=== PATIENT | female | born 1985 | race American Indian/Alaskan Native ===

== ENCOUNTER 2016-12-19 09:26 | Emergency (ER) | payer MEDICAID, OTHER ==
[2016-12-19 09:27] VITALS: BMI 33.5
[2016-12-19 09:39] VITALS: RESP 18; TEMP 98.7
--- NOTE | 2016-12-19 10:49 | RAD ---
PROCEDURE: Right Foot Radiographs. HISTORY: foot pain COMPARISON: None. FINDINGS: BONES: Normal. No fracture. JOINTS: Normal. SOFT TISSUES: Normal. OTHER FINDINGS: None. IMPRESSION: Normal right foot radiographs.
--- NOTE | 2016-12-19 11:04 | ED PDOC ---
Arrival/HPI - General Chief Complaint: Lower Extremity Problem/Injury Time Seen by Provider: 12/19/16 09:32 Historian: Patient - History of Present Illness Narrative History of Present Illness (Text): 12/19/16 11:01 31yo female who present with complaint of right lateral foot pain x one week. States pain radiates from her hell to her lateral foot. Pain is usually with weight bearing. Denies trauma, any other complaint. Past Medical History - Provider Review Nursing Documentation Reviewed: Yes - Infectious Disease Hx of Infectious Diseases: None - Cardiac Hx Cardiac Disorders: No - Pulmonary Hx Asthma: Yes - Neurological Hx Neurological Disorder: No - HEENT Hx HEENT Disorder: No - Renal Hx Renal Disorder: No - Endocrine/Metabolic Hx Endocrine Disorders: No - Hematological/Oncological Hx Blood Disorders: No - Integumentary Hx Dermatological Disorder: No - Musculoskeletal/Rheumatological Hx Musculoskeletal Disorders: No - Gastrointestinal Hx Gastrointestinal Disorders: No - Genitourinary/Gynecological Hx Genitourinary Disorders: No - Psychiatric Hx Psychophysiologic Disorder: No Hx Substance Use: No - Anesthesia Hx Anesthesia: No Family/Social History - Physician Review Nursing Documentation Reviewed: Yes Family/Social History: Unknown Family HX Smoking Status: Light Smoker < 10 Cigarettes Daily Hx Alcohol Use: Yes Frequency of alcohol use: Socially Hx Substance Use: No Substance used: cannibis Allergies/Home Meds Allergies/Adverse Reactions: Allergies ibuprofen Allergy (Verified 12/19/16 09:40) ANAPHYLAXIS Caused kidney to fail Home Medications: Home Meds Medication Instructions Recorded Confirmed Albuterol Sulfate [Proair Hfa] 2 puff INH PRN PRN 07/16/16 12/19/16 Review of Systems - Physician Review All systems were reviewed & negative as marked: Yes - Review of Systems Constitutional: Normal Eyes: Normal ENT: Normal Respiratory: Normal Cardiovascular: Normal Gastrointestinal: Normal Genitourinary Female: Normal Musculoskeletal: Arthralgias (Right feet pain) Skin: Normal Neurological: Normal Endocrine: Normal Hemo/Lymphatic: Normal Psychiatric: Normal Physical Exam Vital Signs Reviewed: Yes Vital Signs Temp Pulse Resp BP Pulse Ox 12/19/16 11:25 70 18 110/76 99 12/19/16 09:35 98.7 F 71 18 108/74 98 Temperature: Afebrile Blood Pressure: Normal Pulse: Regular Respiratory Rate: Normal Appearance: Positive for: Well-Appearing, Non-Toxic, Comfortable Pain Distress: None Mental Status: Positive for: Alert and Oriented X 3 - Systems Exam Head: Present: Atraumatic, Normocephalic Pupils: Present: PERRL Extroacular Muscles: Present: EOMI Conjunctiva: Present: Normal Mouth: Present: Moist Mucous Membranes Neck: Present: Normal Range of Motion Respiratory/Chest: Present: Clear to Auscultation, Good Air Exchange. No: Respiratory Distress, Accessory Muscle Use Cardiovascular: Present: Regular Rate and Rhythm, Normal S1, S2. No: Murmurs Abdomen: Present: Normal Bowel Sounds, Peritoneal Signs. No: Tenderness, Distention Genitourinary/Pelvic Exam: Present: Vaginal Bleeding (Small blood pooling noted in vault). No: Cervical Motion Tendernes Back: Present: Normal Inspection Upper Extremity: Present: Normal Inspection. No: Cyanosis, Edema Lower Extremity: Present: NORMAL PULSES, Normal ROM, Tenderness (Lateral right foot), Neurovascularly Intact, Capillary Refill < 2 s. No: Edema, Cyanosis, Swelling, Erythema, Deformity, Temperature Abnormalties Neurological: Present: GCS=15, CN II-XII Intact, Speech Normal Skin: Present: Warm, Dry, Normal Color. No: Rashes Psychiatric: Present: Alert, Oriented x 3, Normal Insight, Normal Concentration Medical Decision Making ED Course and Treatment: 12/19/16 13:45 Right foot xray - No acute finding Result was DW the pt pt. She was ambulatory in ED. DC home with Tramadol. Referred to a Pediatrist. TRT ED for any new or worsening symptoms. - RAD Interpretation Radiology Orders: 12/19/16 09:46 FOOT RIGHT 3 VIEWS ROUTINE [RAD] Stat - Medication Orders Current Medication Orders: Discontinued Medications Prednisone (Prednisone Tab) 40 mg PO STAT STA Stop: 12/19/16 11:22 Last Admin: 12/19/16 11:28 Dose: 40 MG Tramadol HCl (Ultram) 50 mg PO STAT STA Stop: 12/19/16 09:47 Last Admin: 12/19/16 09:53 Dose: 50 MG Disposition/Present on Arrival - Present on Arrival Any Indicators Present on Arrival: No History of DVT/PE: No History of Uncontrolled Diabetes: No Urinary Catheter: No History of Decub. Ulcer: No History Surgical Site Infection Following: None - Disposition Have Diagnosis and Disposition been Completed?: Yes Diagnosis: Foot pain Disposition: HOME/ ROUTINE Disposition Time: 11:10 Patient Plan: Discharge Condition: STABLE Discharge Instructions (ExitCare): Arthralgia (ED) Additional Instructions: Take medication as directed Follow up with your Doctor/Fuel Buyer Return to ED for any new or worsening symptoms Prescriptions: traMADol [Ultram] 50 mg PO TID #10 tab Referrals: Julius Colunga MD [Primary Care Provider] - Follow up with primary Daylin Miles DPM [Staff Provider] - Follow up with primary
[2016-12-19 11:35] VITALS: BP 110/76; PULSE 70; O2SAT 99
== END 2016-12-19 11:37 | disposition home or self-care (01) ==
LOC: ED 09:26
DX: M79.671 Pain in right foot (principal)

== ENCOUNTER 2017-02-16 19:41 | Emergency (ER) | payer OTHER ==
[2017-02-16 19:48] VITALS: TEMP 99.7; BMI 31.5
[2017-02-16] MEDS ORDERED: Levalbuterol 1.25 MG/3 ML Inhal Soln UD IH STA (20:19)
[2017-02-16] MEDS ORDERED: guaiFENesin 200 mg/10 ml Syrup UD PO STA (20:19)
--- NOTE | 2017-02-16 20:27 | ED PDOC ---
Arrival/HPI - General Chief Complaint: Cough, Cold, Congestion Time Seen by Provider: 02/16/17 19:51 Historian: Patient - History of Present Illness Narrative History of Present Illness (Text): 02/16/17 20:20 A 31 year old female, whose past medical history includes asthma, presents to the emergency department for multiple complaints. Patient reports a fever, chills, non-productive cough, congestion, sore throat, body aches and a headache since yesterday. Patient states she has not taken any medication to treat her symptoms. Patient denies any nausea, vomiting, diarrhea, abdominal pain, urinary symptoms, chest pain, shortness of breath, dizziness, ear pain or any other complaints. Time/Duration: Other (Yesterday) Symptom Course: Unchanged Quality: Other Context: Home Past Medical History - Provider Review Nursing Documentation Reviewed: Yes - Infectious Disease Hx of Infectious Diseases: None - Cardiac Hx Cardiac Disorders: No - Pulmonary Hx Asthma: Yes - Neurological Hx Neurological Disorder: No - HEENT Hx HEENT Disorder: No - Renal Hx Renal Disorder: No - Endocrine/Metabolic Hx Endocrine Disorders: No - Hematological/Oncological Hx Blood Disorders: No - Integumentary Hx Dermatological Disorder: No - Musculoskeletal/Rheumatological Hx Musculoskeletal Disorders: No - Gastrointestinal Hx Gastrointestinal Disorders: No - Genitourinary/Gynecological Hx Genitourinary Disorders: No - Psychiatric Hx Psychophysiologic Disorder: No Hx Substance Use: No - Anesthesia Hx Anesthesia: No Family/Social History - Physician Review Nursing Documentation Reviewed: Yes Family/Social History: No Known Family HX Smoking Status: Light Smoker < 10 Cigarettes Daily Hx Alcohol Use: Yes Hx Substance Use: No Substance used: cannibis Allergies/Home Meds Allergies/Adverse Reactions: Allergies ibuprofen Allergy (Verified 02/16/17 19:58) ANAPHYLAXIS Caused kidney to fail Review of Systems - Physician Review All systems were reviewed & negative as marked: Yes - Review of Systems Constitutional: Fevers, Night Sweats ENT: Sore Throat, Sinus Congestion. absent: TMJ Pain Respiratory: Cough. absent: SOB Cardiovascular: absent: Chest Pain Gastrointestinal: absent: Abdominal Pain, Diarrhea, Nausea, Vomiting Genitourinary Female: absent: Dysuria, Frequency, Hematuria, Urine Output Changes Musculoskeletal: Myalgias Neurological: Headache. absent: Dizziness Physical Exam Vital Signs Reviewed: Yes Vital Signs Temp Pulse Resp BP Pulse Ox 02/16/17 20:56 75 18 148/65 99 06/07/17 19:44 99.7 F H 79 16 152/66 H 98 Temperature: Afebrile Blood Pressure: Hypertensive Pulse: Tachycardic Respiratory Rate: Normal Appearance: Positive for: Well-Appearing, Non-Toxic, Comfortable Pain Distress: None Mental Status: Positive for: Alert and Oriented X 3 - Systems Exam Head: Present: Atraumatic, Normocephalic Pupils: Present: PERRL Conjunctiva: Present: Normal Ears: Present: Normal, NORMAL TM, Normal Canal. No: Erythema, Fluid, TM Perf Mouth: Present: Moist Mucous Membranes Pharnyx: Present: Normal. No: ERYTHEMA, EXUDATE, TONSILS ENLARGED Neck: Present: Normal Range of Motion Respiratory/Chest: Present: Clear to Auscultation, Good Air Exchange. No: Respiratory Distress, Accessory Muscle Use Cardiovascular: Present: Regular Rate and Rhythm, Normal S1, S2. No: Murmurs Abdomen: Present: Normal Bowel Sounds. No: Tenderness, Distention, Peritoneal Signs Back: Present: Normal Inspection Upper Extremity: Present: Normal Inspection. No: Cyanosis, Edema Lower Extremity: Present: Normal Inspection. No: Edema Neurological: Present: GCS=15, CN II-XII Intact, Speech Normal Skin: Present: Warm, Dry, Normal Color. No: Rashes Psychiatric: Present: Alert, Oriented x 3, Normal Insight, Normal Concentration Medical Decision Making ED Course and Treatment: 02/16/17 20:20 Impression: A 31 year old female with a fever, chills, cough, congestion, sore throat, body aches and headache. Physical exam unremarkable. Differential Diagnosis included but are not limited to: URI vs. Bronchitis vs. Pharyngitis Plan: -- Chest xray -- Influenza AB stat and Rapid strep -- Urinalysis -- Tylenol, Robitussin and Xopenex -- Reassess and disposition Progress Notes: 02/16/17 21:58 Patient is nontoxic. CXR is unremarkable. Rapid strep and flu are negative. Etiology is viral vs. bronchitis. Will d/c on zithromax and have her use tylenol for fever and body aches and drink plenty of fluids. Will give decadron , given asthma history and she will use her albuterol every 4 hours and instructed to follow up with pmd in 1-2 days. - Lab Interpretations Lab Results: Lab Results 02/16/17 21:00: Influenza Typ A,B (EIA) Negative for flu a/b, Grp A Beta Strep Ag Negative 02/16/17 20:30: Urine Color Yellow, Urine Appearance Clear, Urine pH 7.0, Ur Specific [place] 1.020, Urine Protein Negative, Urine Glucose (UA) Negative, Urine Ketones Negative, Urine Blood Trace-lysed H, Urine Nitrate Negative, Urine Bilirubin Negative, Urine Urobilinogen 0.2, Ur Leukocyte Esterase Negative , Urine RBC 2 - 5, Urine WBC 0 - 2, Ur Epithelial Cells 3 - 4, Urine Bacteria Small - RAD Interpretation Radiology Orders: 02/16/17 20:20 CHEST TWO VIEWS (PA/LAT) [RAD] Stat - Medication Orders Current Medication Orders: Discontinued Medications Acetaminophen (Tylenol 325mg Tab) 975 mg PO STAT STA Stop: 02/16/17 20:20 Last Admin: 02/16/17 21:04 Dose: 975 mg Guaifenesin (Robitussin) 600 mg PO ONCE STA Stop: 02/16/17 20:20 Last Admin: 02/16/17 21:04 Dose: 600 mg Levalbuterol HCl (Xopenex) 1.25 mg IH STAT STA Stop: 02/16/17 20:20 Last Admin: 02/16/17 21:04 Dose: 1.25 mg - Scribe Statement The provider has reviewed the documentation as recorded by the Ning Saucedo Provider Scribe Attestation: All medical record entries made by the Scribe were at my direction and personally dictated by me. I have reviewed the chart and agree that the record accurately reflects my personal performance of the history, physical exam, medical decision making, and the department course for this patient. I have also personally directed, reviewed, and agree with the discharge instructions and disposition. Disposition/Present on Arrival - Present on Arrival Any Indicators Present on Arrival: No History of DVT/PE: No History of Uncontrolled Diabetes: No Urinary Catheter: No History of Decub. Ulcer: No History Surgical Site Infection Following: None - Disposition Have Diagnosis and Disposition been Completed?: Yes Diagnosis: Bronchitis Disposition: HOME/ ROUTINE Disposition Time: 22:00 Patient Plan: Discharge Condition: GOOD Discharge Instructions (ExitCare): Acute Bronchitis (ED) Additional Instructions: Stop smoking. Tylenol for fever and body aches. Drink plenty of fluids. Use the albuterol every 4 hours as intructed and Robitussin (over the counter, as directed). Take the antibiotics as prescribed and follow up with your primary care doctor in 1-2 days. Return to the emergency department if any new concerning symptoms. Prescriptions: Albuterol HFA [Ventolin HFA 90 mcg/actuation (8 g)] 2 puff IH Q4H #1 inhaler Azithromycin [Zithromax] 2 tab PO DAILY #6 tab Referrals: Julius Colunga MD [Primary Care Provider] - Follow up with primary
[2017-02-16 20:45] LABS: URINE BILIRUBIN NEGATIVE (NEGATIVE); URINE BLOOD TRACE-LYSED (NEGATIVE); URINE GLUCOSE (UA) NEGATIVE (NEGATIVE); URINE KETONE NEGATIVE (NEGATIVE); URINE LEUKOCYTE ESTERASE NEGATIVE Leu/uL (NEGATIVE); URINE PROTEIN NEGATIVE mg/dL (<30 mg/dL); URINE UROBILINOGEN 0.2 E.U./dL (<1 E.U./dL)
[2017-02-16 20:47] LABS: URINE APPEARANCE CLEAR (CLEAR); URINE COLOR YELLOW (YELLOW)
[2017-02-16 20:56] VITALS: BP 148/65; PULSE 75; RESP 18; O2SAT 99
[2017-02-16 20:59] LABS: URINE BACTERIA SMALL (NEG); URINE WBC 0 - 2 /hpf (0-6)
--- NOTE | 2017-02-17 08:10 | RAD ---
HISTORY: Fever and cough COMPARISON: No prior. TECHNIQUE: Chest PA and lateral FINDINGS: LUNGS: The lungs are well inflated and clear. PLEURA: No significant pleural effusion identified. No pneumothorax apparent. CARDIOVASCULAR: Normal. OSSEOUS STRUCTURES: No significant abnormalities. VISUALIZED UPPER ABDOMEN: Normal. OTHER FINDINGS: None. IMPRESSION: No active pulmonary disease.
== END 2017-02-16 22:22 | disposition home or self-care (01) ==
LOC: ED 19:41
DX: J20.9 Acute bronchitis, unspecified (principal); Z72.0 Tobacco use
CPT/HCPCS: 71020; 81001; 87070; 87430; 87804; 99283; J8540

== ENCOUNTER 2017-05-12 17:18 | Emergency (ER) | payer OTHER ==
[2017-05-12 17:19] VITALS: BMI 31.5
[2017-05-12 17:45] VITALS: RESP 16; TEMP 99.1; O2SAT 100
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
[2017-05-12 19:25] VITALS: BP 152/62; PULSE 85
--- NOTE | 2017-05-13 07:57 | RAD ---
PROCEDURE: Radiographs of the Left Shoulder HISTORY: left shoulder pain COMPARISON: No prior. FINDINGS: BONES: No fracture or suspicious lytic or blastic changes identified. JOINTS: Normal. Glenohumeral and acromioclavicular joints preserved. No osteoarthritis. SOFT TISSUES: Normal. OTHER FINDINGS: None. IMPRESSION: Normal radiographs of the left shoulder.
== END 2017-05-12 19:25 | disposition home or self-care (01) ==
LOC: ED 17:18
DX: M25.512 Pain in left shoulder (principal)
CPT/HCPCS: 73030; 96372; 99284; J1885

== ENCOUNTER 2017-06-06 21:44 | Emergency (ER) | payer OTHER ==
[2017-06-06 22:09] VITALS: BMI 32.3
[2017-06-06 22:13] VITALS: BP 123/80; PULSE 59; RESP 18; TEMP 98.2; O2SAT 97
[2017-06-06] MEDS ORDERED: TDAP Vaccine 0.5 mL Syr IM ONE (23:34)
--- NOTE | 2017-06-06 23:37 | ED PDOC ---
Arrival/HPI <Gutierrez Bates - Last Filed: 06/07/17 00:51> - General Historian: Patient - History of Present Illness Time/Duration: < week (2 days) Symptom Onset: Gradual Symptom Course: Unchanged Activities at Onset: Light Context: Home <Isis Carter PA-C - Last Filed: 06/07/17 15:15> - General Chief Complaint: Upper Extremity Problem/Injury Time Seen by Provider: 06/06/17 22:29 - History of Present Illness Narrative History of Present Illness (Text): 06/06/17 23:3 32 year old female who presents to the Emergency department complaining of 2 days duration of redness/swelling to dorsal aspect of right 4th PIP. Patient states a spider may have bitten her but she is unsure. Patient denies any decreased ROM, numbness/tingling/weakness in the extremity, trauma/injury, or any other complaints. Patient states her tetanus in not up to date. PMD: Dr. 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) - Endocrine/Metabolic Hx Endocrine Disorders: No - Hematological/Oncological Hx Blood Disorders: No - Integumentary Hx Dermatological Disorder: No - Musculoskeletal/Rheumatological Hx Musculoskeletal Disorders: No - Gastrointestinal Hx Gastrointestinal Disorders: No - Genitourinary/Gynecological Hx Genitourinary Disorders: No - Psychiatric Hx Psychophysiologic Disorder: No Hx Substance Use: Yes - Surgical History Other/Comment: kidney biopsy - Anesthesia Hx Anesthesia: No <Isis Carter PA-C - Last Filed: 06/07/17 15:15> Family/Social History - Physician Review Nursing Documentation Reviewed: Yes Family/Social History: Unknown Family HX Smoking Status: Light Smoker < 10 Cigarettes Daily Hx Alcohol Use: Yes Frequency of alcohol use: Socially Hx Substance Use: Yes Substance used: marijuana <Isis Carter PA-C - Last Filed: 06/07/17 15:15> Allergies/Home Meds <Gutierrez Bates - Last Filed: 06/07/17 00:51> <Isis Carter PA-C - Last Filed: 06/07/17 15:15> Allergies/Adverse Reactions: Allergies ibuprofen Allergy (Verified 05/12/17 17:45) ANAPHYLAXIS Caused kidney to fail Review of Systems - Physician Review All systems were reviewed & negative as marked: Yes - Review of Systems Constitutional: Normal. absent: Fevers Eyes: Normal ENT: Normal Respiratory: Normal. absent: SOB, Cough Cardiovascular: Normal. absent: Chest Pain Gastrointestinal: Normal. absent: Abdominal Pain, Diarrhea, Nausea, Vomiting Genitourinary Female: Normal. absent: Dysuria, Frequency, Hematuria, Urine Output Changes Musculoskeletal: Normal. absent: Back Pain, Neck Pain Skin: Other (+swelling/redness to right 4th finger) Neurological: Normal. absent: Headache, Dizziness Endocrine: Normal Hemo/Lymphatic: Normal Psychiatric: Normal <Isis Carter PA-C - Last Filed: 06/07/17 15:15> Physical Exam Vital Signs Reviewed: Yes Temperature: Afebrile Blood Pressure: Normal Pulse: Regular Respiratory Rate: Normal Appearance: Positive for: Well-Appearing, Non-Toxic, Comfortable Pain Distress: None Mental Status: Positive for: Alert and Oriented X 3 - Systems Exam Head: Present: Atraumatic, Normocephalic Pupils: Present: PERRL Extroacular Muscles: Present: EOMI Conjunctiva: Present: Normal Mouth: Present: Moist Mucous Membranes Upper Extremity: Present: Normal ROM, NORMAL PULSES, Erythema (Mild erythema/ edema to right dorsal 4th mid-phalanx), Neurovascularly Intact, Capillary Refill < 2s. No: Cyanosis, Edema, Tenderness, Swelling, Temperature Abnormalties, Deformity Lower Extremity: Present: Normal Inspection. No: Edema Neurological: Present: GCS=15, CN II-XII Intact, Speech Normal Skin: Present: Warm, Dry, Normal Color. No: Rashes Psychiatric: Present: Alert, Oriented x 3, Normal Insight, Normal Concentration <Isis Carter PA-C - Last Filed: 06/07/17 15:15> Vital Signs Temp Pulse Resp BP Pulse Ox 06/06/17 22:12 98.2 F 59 L 18 123/80 97 Medical Decision Making <Gutierrez Bates - Last Filed: 06/07/17 00:51> <Isis Carter PA-C - Last Filed: 06/07/17 15:15> ED Course and Treatment: 06/06/17 23:30 Impression: 32 year old female complaining of redness/swelling to dorsal aspect of 4th PIP. Differential Diagnosis included but are not limited to: insect bite, contact dermatitis, early cellulitis Plan: -- Benadryl -- Tetanus -- Tylenol -- Keflex -- Reassess and disposition Progress Notes: Patient notified of likely diagnosis of insect bite with possible contact dermatitis. Advised to keep finger elevated, ice. Instructed to follow up with primary care physician in 1-2 days without fail. Advised to take medication as prescribed. Return to the emergency room at any time for any new or worsening symptoms. Patient states she fully agrees with and understands discharge instructions. States that she agrees with the plan and disposition. Verbalized and repeated discharge instructions and plan. I have given the patient opportunity to ask any additional questions. (Isis Carter PA-C) - Medication Orders Current Medication Orders: Discontinued Medications Acetaminophen (Tylenol 325mg Tab) 975 mg PO STAT STA Stop: 06/06/17 23:35 Last Admin: 06/06/17 23:55 Dose: 975 mg Cephalexin Monohydrate (Keflex) 500 mg PO STAT STA PRN Reason: Protocol Stop: 06/06/17 23:35 Last Admin: 06/06/17 23:55 Dose: 500 mg Diphenhydramine HCl (Benadryl) 50 mg PO STAT STA Stop: 06/06/17 23:35 Last Admin: 06/06/17 23:55 Dose: 50 mg Tetanus/Reduced Diphtheria/Acell Pertussis (Boostrix Vaccine Inj) 0.5 ml IM .ONCE ONE Stop: 06/06/17 23:35 Last Admin: 06/06/17 23:55 Dose: 0.5 ml MAR Immunization Data Document 06/06/17 23:55 MICHAEL (Rec: 06/06/17 23:56 MICHAEL [id number]) Immunization Data Vaccine Lot Number [id number] - PA / [employer]CHO[employer] NURSE / Resident Statement MD/DO has reviewed & agrees with the documentation as recorded. <Gutierrez Bates - Last Filed: 06/07/17 00:51> - PA / SUBSTITUTE SCHOOL NURSE / Resident Statement MD/DO has reviewed & agrees with the documentation as recorded. - Scribe Statement The provider has reviewed the documentation as recorded by the Scribe <Isis Carter PA-C - Last Filed: 06/07/17 15:15> - Scribe Statement Anita Barnett Provider Scribe Attestation: All medical record entries made by the Scribe were at my direction and personally dictated by me. I have reviewed the chart and agree that the record accurately reflects my personal performance of the history, physical exam, medical decision making, and the department course for this patient. I have also personally directed, reviewed, and agree with the discharge instructions and disposition. (Isis Carter PA-C) Disposition/Present on Arrival <Gutierrez Bates - Last Filed: 06/07/17 00:51> - Present on Arrival Any Indicators Present on Arrival: No History of DVT/PE: No History of Uncontrolled Diabetes: No Urinary Catheter: No History of Decub. Ulcer: No History Surgical Site Infection Following: None - Disposition Have Diagnosis and Disposition been Completed?: Yes Disposition Time: 23:00 Patient Plan: Discharge <Isis Carter PA-C - Last Filed: 06/07/17 15:15> - Disposition Diagnosis: Insect bite Disposition: HOME/ ROUTINE Condition: STABLE Discharge Instructions (ExitCare): Insect Bite or Sting (ED) Print Language: MACANESE Additional Instructions: Thank you for letting us take care of you today. You were treated for insect bite. The emergency medical care you received today was directed at your acute symptoms. If you were prescribed any medication, please fill it and take as directed. It may take several days for your symptoms to resolve. Take tylenol for pain. Return to the Emergency Department if your symptoms worsen, do not improve, or if you have any other problems. Please contact your doctor in 2 days for re-evaluation and follow up. Bring any paperwork you were given at discharge with you along with any medications you are taking to your follow up visit. Our treatment cannot replace ongoing medical care by a primary care provider (PCP) outside of the emergency department. Thank you for allowing the [facility] team to be part of your care today. Prescriptions: Cephalexin [Keflex] 500 mg PO Q6 #28 capsule Cetirizine HCl [Zyrtec] 10 mg PO DAILY #30 capsule Hydrocortisone Kimberley 0.2% Cr [Westcort] 1 ea TP BID #15 tube Referrals: Julius Colunga MD [Primary Care Provider] - Follow up with primary Forms: [employer] (Indonesian), WORK NOTE
== END 2017-06-07 00:05 | disposition home or self-care (01) ==
LOC: ED 21:44
DX: S60.465A Insect bite (nonvenomous) of left ring finger, initial encounter (principal); W57.XXXA Bitten or stung by nonvenomous insect and other nonvenomous arthropods, initial encounter; Y93.9 Activity, unspecified; Y92.9 Unspecified place or not applicable; Z23 Encounter for immunization

== ENCOUNTER 2017-07-01 10:53 | Emergency (ER) | payer MEDICAID, OTHER ==
[2017-07-01 10:53] VITALS: BMI 32.3
--- NOTE | 2017-07-01 11:14 | ED PDOC ---
Arrival/HPI - General Chief Complaint: Cough, Cold, Congestion Time Seen by Provider: 07/01/17 11:00 Historian: Patient - History of Present Illness Narrative History of Present Illness (Text): 07/01/17 11:10 A 32 year old female whose past medical history includes asthma, presents to the emergency department with 5 day duration cough and congestion. The patient states that she has been taking her inhaler at home. She denies fevers, chills, headache, dizziness, chest pain, sore throat, abdominal pain, nausea, vomiting, diarrhea, back pain, neck pain, urinary/bowel changes, or any other complaint. PMD: Dr. Yvrose Colunga Time/Duration: Other (5 Days) Symptom Onset: Sudden Activities at Onset: Rest, Light Context: Home Past Medical History - Provider Review Nursing Documentation Reviewed: Yes - Infectious Disease Hx of Infectious Diseases: None - Cardiac Hx Cardiac Disorders: No - Pulmonary Hx Asthma: Yes - Neurological Hx Neurological Disorder: No - HEENT Hx HEENT Disorder: No - Renal Hx Renal Disorder: No Hx Renal Failure: Yes (from motrin) - Endocrine/Metabolic Hx Endocrine Disorders: No - Hematological/Oncological Hx Blood Disorders: No - Integumentary Hx Dermatological Disorder: No - Musculoskeletal/Rheumatological Hx Musculoskeletal Disorders: No - Gastrointestinal Hx Gastrointestinal Disorders: No - Genitourinary/Gynecological Hx Genitourinary Disorders: No - Psychiatric Hx Psychophysiologic Disorder: No Hx Substance Use: Yes - Surgical History Other/Comment: kidney biopsy - Anesthesia Hx Anesthesia: Yes Family/Social History - Physician Review Nursing Documentation Reviewed: Yes Family/Social History: No Known Family HX Smoking Status: Light Smoker < 10 Cigarettes Daily Hx Alcohol Use: Yes Frequency of alcohol use: Socially Hx Substance Use: Yes Substance used: marijuana Allergies/Home Meds Allergies/Adverse Reactions: Allergies ibuprofen Allergy (Verified 05/12/17 17:45) ANAPHYLAXIS Caused kidney to fail Home Medications: Home Meds Medication Instructions Recorded Confirmed Albuterol HFA [Ventolin HFA 90 1 puff IH DAILY PRN 07/01/17 07/01/17 mcg/actuation (8 g)] Review of Systems - Physician Review All systems were reviewed & negative as marked: Yes - Review of Systems Constitutional: absent: Fevers, Night Sweats ENT: absent: Sore Throat Respiratory: Cough. absent: SOB Cardiovascular: absent: Chest Pain Gastrointestinal: absent: Abdominal Pain, Stool Changes, Diarrhea, Vomiting Genitourinary Female: absent: Urine Output Changes Musculoskeletal: absent: Back Pain, Neck Pain Neurological: absent: Headache, Dizziness Physical Exam Vital Signs Reviewed: Yes Vital Signs Temp Pulse Resp BP Pulse Ox 07/01/17 10:55 98.2 F 105 H 18 145/96 H 97 Temperature: Afebrile Blood Pressure: Hypertensive Pulse: Tachycardic Respiratory Rate: Normal Appearance: Positive for: Well-Appearing, Non-Toxic, Comfortable Pain Distress: None Mental Status: Positive for: Alert and Oriented X 3 - Systems Exam Head: Present: Atraumatic, Normocephalic Pupils: Present: PERRL Extroacular Muscles: Present: EOMI Conjunctiva: Present: Normal Mouth: Present: Moist Mucous Membranes Neck: Present: Normal Range of Motion Respiratory/Chest: Present: Wheezes (Scattered Wheezing) Cardiovascular: Present: Regular Rate and Rhythm, Normal S1, S2. No: Murmurs Abdomen: Present: Normal Bowel Sounds. No: Tenderness, Distention, Peritoneal Signs Back: Present: Normal Inspection Upper Extremity: Present: Normal Inspection. No: Cyanosis, Edema Lower Extremity: Present: Normal Inspection. No: Edema Neurological: Present: GCS=15, CN II-XII Intact, Speech Normal Skin: Present: Warm, Dry, Normal Color. No: Rashes Psychiatric: Present: Alert, Oriented x 3, Normal Insight, Normal Concentration Medical Decision Making ED Course and Treatment: 07/01/17 11:16 Impression: A 32 year old female presents to the emergency department with 5 day duration cough and congestion. Plan: -- Chest X-ray -- Urinalysis -- Labs -- Duoneb and SOLU-Medrol -- Reassess and disposition Prior Visits: Notes and results from previous visits were reviewed. Patient was last seen in the emergency department on 06/06/2017 for redness and swelling to the dorsal aspect of right 4th PIP. The patient was discharged home on Keflex, Westcort and Zyrtec with referrals to PMD. Progress Notes: CHEST X-RAY Dictator : Tahir Ames MD Report Date : 07/01/2017 11:33:12 IMPRESSION: No active disease. 07/01/17 12:12: On reevaluation, patient's lungs were clear. The patient is requesting d/c. - Lab Interpretations Lab Results: 07/01/17 11:26 07/01/17 11:26 Lab Results 07/01/17 11:30: Influenza Typ A,B (EIA) Negative for flu a/b 07/01/17 11:26: Sodium 143, Potassium 3.6, Chloride 110 H, Carbon Dioxide 25, Anion Gap 12, BUN 12, Creatinine 0.9, Est GFR ( Amer) > 60, Est GFR (Non- Af Amer) > 60, Random Glucose 112 H, Calcium 9.1, Total Bilirubin 0.5, AST 26, ALT 34, Alkaline Phosphatase 46, Total Protein 6.9, Albumin 3.9, Globulin 2.9, Albumin/Globulin Ratio 1.3 07/01/17 11:26: PT 12.5, INR 1.13 H, APTT 28.4 07/01/17 11:26: WBC 3.8 L, RBC 4.07, Hgb 13.5, Hct 38.2, MCV 93.9, MCH 33.2, MCHC 35.3, RDW 12.7, Plt Count 146, MPV 11.0, Gran % 49.6 L, Lymph % (Auto) 36.3 H, [place] % (Auto) 13.3 H, Eos % (Auto) 0.5 L, Baso % (Auto) 0.3, Gran # 1.86 , Lymph # 1.4, [place] # 0.5, Eos # 0.0, Baso # 0.01 07/01/17 11:22: Urine Color Yellow, Urine Appearance Clear, Urine pH 6.0, Ur Specific [place] 1.025, Urine Protein Negative, Urine Glucose (UA) Negative, Urine Ketones Negative, Urine Blood Small H, Urine Nitrate Negative, Urine Bilirubin Negative, Urine Urobilinogen 0.2, Ur Leukocyte Esterase Negative, Urine RBC 0 - 2, Urine WBC 0 - 2, Ur Epithelial Cells 6 - 8, Urine Bacteria Many , Urine HCG, Qual Negative I have reviewed the lab results: Yes - RAD Interpretation Radiology Orders: 07/01/17 11:09 CHEST PORTABLE [RAD] Stat - Medication Orders Current Medication Orders: Discontinued Medications Albuterol/Ipratropium (Duoneb 3 Mg/0.5 Mg (3 Ml) Ud) 3 ml IH Q15M POLLY Stop: 07/01/17 11:46 Last Admin: 07/01/17 12:11 Dose: 3 ml Methylprednisolone (Solu-Medrol) 125 mg IVP STAT STA Stop: 07/01/17 11:10 Last Admin: 07/01/17 11:29 Dose: 125 mg IVP Administration Document 07/01/17 11:29 HI (Rec: 07/01/17 11:29 HI [id number]) Charges for Administration # of IVP Administrations 1 - Scribe Statement The provider has reviewed the documentation as recorded by the [place] Provider Scribe Attestation: All medical record entries made by the Scribe were at my direction and personally dictated by me. I have reviewed the chart and agree that the record accurately reflects my personal performance of the history, physical exam, medical decision making, and the department course for this patient. I have also personally directed, reviewed, and agree with the discharge instructions and disposition. Disposition/Present on Arrival - Present on Arrival Any Indicators Present on Arrival: No History of DVT/PE: No History of Uncontrolled Diabetes: No Urinary Catheter: No History of Decub. Ulcer: No History Surgical Site Infection Following: None - Disposition Have Diagnosis and Disposition been Completed?: Yes Diagnosis: Asthma Disposition: HOME/ ROUTINE Disposition Time: 11:00 Condition: STABLE Discharge Instructions (ExitCare): Asthma (ED) Additional Instructions: please follow up with your doctor/clinic., return to er with worsening symptoms or concerns. Prescriptions: Albuterol 0.083% [Albuterol 0.083% Inhal Milla (2.5 mg/3 ml) UD] 2.5 mg IH Q6 PRN #20 neb PRN Reason: Wheezing Nebulizer [Aeroeclipse II] 1 each MC Q6 PRN #1 each PRN Reason: Wheezing Nebulizer Accessories [Adult Aerosol Mask] 1 each MC Q6 PRN #1 each PRN Reason: Wheezing Prednisone 50 mg PO DAILY #5 tab Referrals: [employer] [Outside] - Follow up with primary [facility] [Outside] - Follow up with primary [facility] [Outside] - Follow up with primary PCP,NO [Primary Care Provider] - Follow up with primary Forms: [employer] (Sao Tomean)
[2017-07-01 11:17] VITALS: BP 145/96; PULSE 105; RESP 18; TEMP 98.2; O2SAT 97
[2017-07-01 11:26] LABS: URINE BILIRUBIN NEGATIVE (NEGATIVE); URINE BLOOD SMALL (NEGATIVE); URINE GLUCOSE (UA) NEGATIVE (NEGATIVE); URINE KETONE NEGATIVE (NEGATIVE); URINE LEUKOCYTE ESTERASE NEGATIVE Leu/uL (NEGATIVE); URINE PROTEIN NEGATIVE mg/dL (<30 mg/dL); URINE UROBILINOGEN 0.2 E.U./dL (<1 E.U./dL)
[2017-07-01 11:28] LABS: URINE APPEARANCE CLEAR (CLEAR); URINE COLOR YELLOW (YELLOW)
[2017-07-01] MEDS: Albuterol-Ipratrop 3 mg / 0.5 (3 ml) UD IH SCH ×3 (11:29→12:11)
[2017-07-01 11:34] LABS: URINE BACTERIA MANY (NEG); URINE RBC 0 - 2 /hpf (0-2); URINE WBC 0 - 2 /hpf (0-6)
--- NOTE | 2017-07-01 11:35 | RAD ---
HISTORY: sob COMPARISON: 02/16/2017 FINDINGS: LUNGS: No active pulmonary disease. PLEURA: No significant pleural effusion identified, no pneumothorax apparent. CARDIOVASCULAR: Normal. OSSEOUS STRUCTURES: No significant abnormalities. VISUALIZED UPPER ABDOMEN: Normal. OTHER FINDINGS: None. IMPRESSION: No active disease.
[2017-07-01 11:37] LABS: BASO # 0.01 K/mm3 (0.0-2.0); BASO % 0.3 % (0.0-3.0); EOS % 0.5 % (1.5-5.0); GRAN # 1.86 (1.4-6.5); GRAN % 49.6 % (50.0-68.0); HEMATOCRIT 38.2 % (36.0-48.0); LYMPH # 1.4 (1.2-3.4); LYMPH % 36.3 % (22.0-35.0); MEAN CELL VOLUME 93.9 fl (80.0-105.0); MEAN CORPUSCULAR HEMOGLOBIN 33.2 pg (25.0-35.0); MEAN CORPUSCULAR HGB CONC 35.3 g/dl (31.0-37.0); MONO # 0.5 (0.1-0.6); MONO % 13.3 % (1.0-6.0); RED CELL DISTRIBUTION WIDTH 12.7 % (11.5-14.5); WHITE BLOOD COUNT 3.8 10^3/ul (4.5-11.0)
[2017-07-01 11:47] LABS: ALB/GLOB RATIO 1.3 (1.1-1.8); ALKALINE PHOSPHATASE 46 U/L (38-126); ALT/SGPT 34 U/L (7-56); AST/SGOT 26 U/L (14-36); BILIRUBIN,TOTAL 0.5 mg/dL (0.2-1.3); BLOOD UREA NITROGEN 12 mg/dL (7-21); CALCIUM 9.1 mg/dL (8.4-10.5); CARBON DIOXIDE 25 mmol/L (21-33); CHLORIDE 110 mmol/L (98-107); GFR AFRICAN-AMERICAN > 60; GLUCOSE,RANDOM 112 mg/dL (70-110); POTASSIUM 3.6 mmol/L (3.6-5.0); SODIUM 143 mmol/L (132-148); TOTAL PROTEIN 6.9 g/dL (5.8-8.3)
[2017-07-01 11:55] LABS: INR 1.13 (0.93-1.08); PARTIAL THROMBOPLASTIN TIME 28.4 Seconds (25.1-36.5)
== END 2017-07-01 12:35 | disposition home or self-care (01) ==
LOC: ED 10:53
DX: J45.909 Unspecified asthma, uncomplicated (principal); F17.210 Nicotine dependence, cigarettes, uncomplicated
CPT/HCPCS: 71010; 80053; 81001; 84703; 85025; 85610; 85730; 87804; 96374; 99283; J2930

== ENCOUNTER 2017-09-19 22:44 | Emergency (ER) | payer SELFPAY ==
[2017-09-19 23:07] VITALS: BMI 31.4
[2017-09-19 23:11] VITALS: RESP 18
[2017-09-20 00:16] LABS: URINE BILIRUBIN NEGATIVE (NEGATIVE); URINE BLOOD SMALL (NEGATIVE); URINE GLUCOSE (UA) NEGATIVE (NEGATIVE); URINE LEUKOCYTE ESTERASE NEGATIVE Leu/uL (NEGATIVE); URINE NITRATE NEGATIVE (NEGATIVE); URINE PROTEIN NEGATIVE mg/dL (<30 mg/dL); URINE UROBILINOGEN 0.2 E.U./dL (<1 E.U./dL)
[2017-09-20 00:21] LABS: URINE APPEARANCE CLEAR (CLEAR); URINE COLOR YELLOW (YELLOW)
--- NOTE | 2017-09-20 00:22 | ED PDOC ---
Arrival/HPI - General Chief Complaint: Back Pain Time Seen by Provider: 09/19/17 23:40 Historian: Patient - History of Present Illness Narrative History of Present Illness (Text): 09/20/17 00:22 32 y/o female, pmh including asthma, allergic to motrin, c/o lt. lower back pain x 3 days with no fall or trauma. Aching pain, aggravated by movement, radiating to the lt. thigh region, no numbness or tingling, no pain medication taken at home, no night sweat, no urinary symptoms, no urinary or bowel incontinence or retention, no other medical or psychological complaints. Past Medical History - Provider Review Nursing Documentation Reviewed: Yes - Infectious Disease Hx of Infectious Diseases: None - Tetanus Immunization Tetanus Immunization: Up to Date - Cardiac Hx Cardiac Disorders: No - Pulmonary Hx Asthma: Yes - Neurological Hx Neurological Disorder: No - HEENT Hx HEENT Disorder: No - Renal Hx Renal Disorder: No Hx Renal Failure: Yes (from motrin) - Endocrine/Metabolic Hx Endocrine Disorders: No - Hematological/Oncological Hx Blood Disorders: No - Integumentary Hx Dermatological Disorder: No - Musculoskeletal/Rheumatological Hx Musculoskeletal Disorders: No - Gastrointestinal Hx Gastrointestinal Disorders: No - Genitourinary/Gynecological Hx Genitourinary Disorders: No - Psychiatric Hx Psychophysiologic Disorder: No Hx Substance Use: Yes - Surgical History Other/Comment: kidney biopsy - Anesthesia Hx Anesthesia: No Family/Social History - Physician Review Nursing Documentation Reviewed: Yes Family/Social History: Unknown Family HX Smoking Status: Light Smoker < 10 Cigarettes Daily Hx Alcohol Use: Yes Hx Substance Use: Yes Substance used: marijuana Allergies/Home Meds Allergies/Adverse Reactions: Allergies ibuprofen Allergy (Verified 05/12/17 17:45) ANAPHYLAXIS Caused kidney to fail Home Medications: Home Meds Medication Instructions Recorded Confirmed Albuterol HFA [Ventolin HFA 90 1 puff IH DAILY PRN 07/01/17 09/19/17 mcg/actuation (8 g)] Review of Systems - Review of Systems Constitutional: absent: Fatigue, Fevers Eyes: absent: Vision Changes ENT: absent: Hearing Changes Respiratory: absent: SOB, Cough Cardiovascular: absent: Chest Pain Gastrointestinal: absent: Abdominal Pain, Diarrhea, Nausea, Vomiting Musculoskeletal: Back Pain. absent: Arthralgias, Myalgias Skin: absent: Rash, Pruritis, Skin Lesions, Laceration, Ulcer Neurological: absent: Headache, Dizziness Psychiatric: absent: Anxiety, Depression Physical Exam Vital Signs Reviewed: Yes Vital Signs Temp Pulse Resp BP Pulse Ox 09/19/17 23:11 98.0 F 64 18 118/73 95 Temperature: Afebrile Blood Pressure: Normal Pulse: Regular Respiratory Rate: Normal Appearance: Positive for: Well-Appearing, Non-Toxic Pain Distress: Moderate Mental Status: Positive for: Alert and Oriented X 3 - Systems Exam Head: Present: Atraumatic, Normocephalic Pupils: Present: PERRL Extroacular Muscles: Present: EOMI Conjunctiva: Present: Normal Mouth: Present: Moist Mucous Membranes Neck: Present: Normal Range of Motion Respiratory/Chest: Present: Clear to Auscultation, Good Air Exchange. No: Respiratory Distress, Accessory Muscle Use Cardiovascular: Present: Regular Rate and Rhythm, Normal S1, S2. No: Murmurs Abdomen: Present: Normal Bowel Sounds. No: Tenderness, Distention, Peritoneal Signs Back: Present: Normal Inspection, Other (LS spine: +ttp on the lt. paraspinal region, no midline tenderness or step off, FROM without limitation, sensation intact, motor 5/5, SLR test negative. ). No: CVA Tenderness, Midline Tenderness , Pain with Leg Raise, Decubitus Ulcer Upper Extremity: Present: Normal Inspection. No: Cyanosis, Edema Lower Extremity: Present: Normal Inspection. No: Edema Neurological: Present: GCS=15, CN II-XII Intact, Speech Normal Skin: Present: Warm, Dry, Normal Color. No: Rashes Psychiatric: Present: Alert, Oriented x 3, Normal Insight, Normal Concentration Medical Decision Making ED Course and Treatment: 09/20/17 00:32 -Percocet 09/20/17 00:45 -UA show no UTI -I checked the [facility] report and there is no signs of drug abuse. -Discharge home with perocet, lidoderm patch, heat compression, follow up with your own pmd and pain management within 2 days, return to the ER for any new or worsening signs or symptoms. - Lab Interpretations Lab Results: Lab Results 09/19/17 23:50: Urine Color Yellow, Urine Appearance Clear, Urine pH 6.0, Ur Specific [place] >= 1.030, Urine Protein Negative, Urine Glucose (UA) Negative, Urine Ketones Trace H, Urine Blood Small H, Urine Nitrate Negative, Urine Bilirubin Negative, Urine Urobilinogen 0.2, Ur Leukocyte Esterase Negative, Urine RBC 1 - 3, Urine WBC 0 - 2, Ur Epithelial Cells 0 - 2 I have reviewed the lab results: Yes Interpretation: No clinic. lab abnormalty - Medication Orders Current Medication Orders: Discontinued Medications Lidocaine (Lidoderm) 1 ea TD STAT STA Stop: 09/20/17 00:28 Last Admin: 09/20/17 00:44 Dose: 1 ea MAR Transdermal Patch Site Document 09/20/17 00:44 NANCY (Rec: 09/20/17 00:44 NANCY [facility] [place] [facility]) Transdermal Patch Site Transdermal Patch Site Right Lower Back Oxycodone/Acetaminophen (Percocet 5/325 Mg Tab) 1 tab PO STAT STA Stop: 09/20/17 00:28 Last Admin: 09/20/17 00:38 Dose: 1 tab MAR Pain Assessment Document 09/20/17 00:38 NANCY (Rec: 09/20/17 00:38 NANCY [facility] [place] [facility]) Pain Reassessment Is this a pain reassessment? Yes Sleep Is patient sleeping during reassessment? No Presence of Pain Presence of Pain Yes Location Upper or Lower Lower Pain Location Body Site Back - PA / QUAL RESEARCH MANAGER / Resident Statement MD/DO has reviewed & agrees with the documentation as recorded. Disposition/Present on Arrival - Present on Arrival Any Indicators Present on Arrival: No History of DVT/PE: No History of Uncontrolled Diabetes: No Urinary Catheter: No History of Decub. Ulcer: No History Surgical Site Infection Following: None - Disposition Have Diagnosis and Disposition been Completed?: Yes Diagnosis: Lower back pain Disposition: HOME/ ROUTINE Disposition Time: 00:35 Patient Plan: Discharge Condition: GOOD Discharge Instructions (ExitCare): Lumbar Radiculopathy (ED) Print Language: NORTHERN IRISH Additional Instructions: -Discharge home with perocet, lidoderm patch, heat compression, follow up with your own pmd and pain management within 2 days, return to the ER for any new or worsening signs or symptoms. Prescriptions: Lidocaine 5% [Lidoderm] 1 patch TOP DAILY PRN #14 patch PRN Reason: Other oxyCODONE/Acetaminophen [Percocet 5/325 mg Tab] 1 tab PO QID PRN #12 tab PRN Reason: Other Referrals: Noemi Ford MD [Staff Provider] - Follow up with primary [facility] [Outside] - Follow up with primary Forms: [employer] (Sami), WORK NOTE
[2017-09-20] MEDS ORDERED: Lidocaine 5% Patch TD STA (00:27)
[2017-09-20] MEDS ORDERED: Oxycodone/Acetaminophen 5/325 mg Tab PO STA (00:27)
[2017-09-20 00:39] LABS: URINE EPITHELIAL CELLS 0 - 2 /hpf (0-5); URINE WBC 0 - 2 /hpf (0-6)
[2017-09-20 01:00] VITALS: BP 116/72; PULSE 60; TEMP 97.9; O2SAT 97
== END 2017-09-20 01:00 | disposition home or self-care (01) ==
LOC: ED 22:44
DX: M54.5 Low back pain (principal)

== ENCOUNTER 2018-01-26 22:24 | Emergency (ER) | payer SELFPAY ==
[2018-01-26 23:03] VITALS: BMI 34.4
[2018-01-26 23:06] VITALS: RESP 18; TEMP 98
--- NOTE | 2018-01-27 01:35 | ED PDOC ---
Arrival/HPI - General Chief Complaint: Lower Extremity Problem/Injury Time Seen by Provider: 01/26/18 23:47 Historian: Patient - History of Present Illness Narrative History of Present Illness (Text): 01/27/18 01:35 32yr old female presents today with 1 week history of worsening right foot pain. pt denies numbness, weakness, tingling in the extremity. pt denies trauma or injury. pt states the majority of the pain is over the bunion on the right foot. pt states she has been taking otc medications without improvement. pt states she is constantly standing on her feet and cant take the pain. pt denies fever/chills. no calf pain. no other complaints. Past Medical History - Provider Review Nursing Documentation Reviewed: Yes - Travel History Have you recently traveled outside [place] w/in the past 3 mons?: No - Infectious Disease Hx of Infectious Diseases: None - Tetanus Immunization Tetanus Immunization: Up to Date - Cardiac Hx Cardiac Disorders: No - Pulmonary Hx Asthma: Yes - Neurological Hx Neurological Disorder: No - HEENT Hx HEENT Disorder: No - Renal Hx Renal Disorder: No Hx Renal Failure: Yes (from motrin) - Endocrine/Metabolic Hx Endocrine Disorders: No - Hematological/Oncological Hx Blood Disorders: No - Integumentary Hx Dermatological Disorder: No - Musculoskeletal/Rheumatological Hx Musculoskeletal Disorders: No - Gastrointestinal Hx Gastrointestinal Disorders: No - Genitourinary/Gynecological Hx Genitourinary Disorders: No - Psychiatric Hx Psychophysiologic Disorder: No Hx Substance Use: Yes - Surgical History Other/Comment: kidney biopsy - Anesthesia Hx Anesthesia: No Family/Social History - Physician Review Nursing Documentation Reviewed: Yes Family/Social History: Unknown Family HX Smoking Status: Light Smoker < 10 Cigarettes Daily Hx Alcohol Use: Yes Hx Substance Use: Yes Substance used: marijuana Allergies/Home Meds Allergies/Adverse Reactions: Allergies ibuprofen Allergy (Verified 01/26/18 22:59) ANAPHYLAXIS Caused kidney to fail Home Medications: Home Meds Medication Instructions Recorded Confirmed Albuterol HFA [Ventolin HFA 90 1 puff IH DAILY PRN 07/01/17 09/19/17 mcg/actuation (8 g)] Review of Systems - Review of Systems Constitutional: absent: Fatigue, Fevers Respiratory: absent: SOB, Cough Cardiovascular: absent: Chest Pain, Palpitations Gastrointestinal: absent: Abdominal Pain, Nausea, Vomiting Genitourinary Female: absent: Dysuria Musculoskeletal: Arthralgias (right foot pain). absent: Back Pain, Neck Pain Psychiatric: absent: Anxiety, Depression Physical Exam Vital Signs Reviewed: Yes Vital Signs Temp Pulse Resp BP Pulse Ox 01/26/18 23:06 98.0 F 74 18 107/63 100 Temperature: Afebrile Blood Pressure: Normal Pulse: Regular Respiratory Rate: Normal Appearance: Positive for: Well-Appearing, Non-Toxic, Comfortable Pain Distress: None Mental Status: Positive for: Alert and Oriented X 3 - Systems Exam Head: Present: Atraumatic Mouth: Present: Moist Mucous Membranes Neck: Present: Normal Range of Motion Respiratory/Chest: Present: Clear to Auscultation, Good Air Exchange. No: Respiratory Distress, Accessory Muscle Use Cardiovascular: Present: Regular Rate and Rhythm, Normal S1, S2. No: Murmurs Lower Extremity: Present: Normal Inspection, NORMAL PULSES, Normal ROM, Tenderness (Right Foot: no edema, no eythema, no ecchymosis; sensation and distal pulses intact; cap refill <2. ), Neurovascularly Intact, Capillary Refill < 2 s. No: Edema, CALF TENDERNESS, Swelling, Erythema, Deformity, Temperature Abnormalties Neurological: Present: GCS=15 Skin: Present: Warm, Dry, Normal Color. No: Rashes Psychiatric: Present: Alert, Oriented x 3 Medical Decision Making ED Course and Treatment: 01/27/18 01:44 Patient nontoxic well-appearing in no distress with stable vital signs pt with right foot pain x 1 week contrary to triage. no trauma or injury. X-rays of the foot: no fracture. reviewed by dr. long. pt given tylenol for pain as toradol can not be given due to patient allergies. pt refused tramadol for pain; states it " doesn't sit well in her stomach" Patient placed in a perrin dressing. pt refused crutches given for ambulation. I discussed all results in depth with the patient advised to followup with the orthopedist/toxicology teacher within the next 2 days. Return if symptoms worsen persist or new symptoms develop. Patient does not want days off of work. Patient wants a note stating that she can sit at work Patient verbalizes understanding of discharge instructions and need for immediate followup. all aspects of this case were discussed the attending of record. Impression: Foot pain percocet; 1 tablet every 6 hours as needed for pain; may cause drowsiness rest,ice, elevation use crutches for ambulation follow up with the foot doctor within the next 2 days. follow up with the primary care physician within the next 2 days. return if symptoms worsen,persist or if new symptoms develop. - RAD Interpretation Radiology Orders: 01/26/18 23:48 FOOT RIGHT 3 VIEWS ROUTINE [RAD] Stat - Medication Orders Current Medication Orders: Discontinued Medications Acetaminophen (Tylenol 325mg Tab) 975 mg PO STAT STA Stop: 01/26/18 23:49 Last Admin: 01/27/18 00:01 Dose: 975 mg MAR Pain/Vitals Document 01/27/18 00:01 NANCY (Rec: 01/27/18 00:02 NANCY [id number]) Pain Reassessment Is This A Pain ReAssessment? Yes Disposition/Present on Arrival - Present on Arrival Any Indicators Present on Arrival: No History of DVT/PE: No History of Uncontrolled Diabetes: No Urinary Catheter: No History of Decub. Ulcer: No History Surgical Site Infection Following: None - Disposition Have Diagnosis and Disposition been Completed?: Yes Diagnosis: Foot pain Disposition: HOME/ ROUTINE Disposition Time: : Patient Plan: Discharge Condition: GOOD Discharge Instructions (ExitCare): Metatarsalgia Additional Instructions: percocet; 1 tablet every 6 hours as needed for pain; may cause drowsiness rest,ice, elevation use crutches for ambulation follow up with the foot doctor within the next 2 days. follow up with the primary care physician within the next 2 days. return if symptoms worsen,persist or if new symptoms develop. Prescriptions: oxyCODONE/Acetaminophen [Percocet 5/325 mg Tab] 1 tab PO Q6H PRN #4 tab PRN Reason: moderate to severe pain Referrals: Chad Hampton DPM [Staff Provider] - Follow up with primary Carol Hargrove MD [Staff Provider] - Follow up with primary Adelaida Nguyễn MD [Staff Provider] - Follow up with primary Forms: [facility] ([place]), WORK NOTE
[2018-01-27 03:12] VITALS: BP 110/64; PULSE 78; O2SAT 98
--- NOTE | 2018-01-27 09:32 | RAD ---
PROCEDURE: Right Foot Radiographs. HISTORY: right foot pain COMPARISON: None. FINDINGS: BONES: Normal. No fracture. JOINTS: Mild degenerative changes in the 1st MTP joint SOFT TISSUES: Normal. OTHER FINDINGS: None. IMPRESSION: Mild degenerative changes 1st MTP joint. No acute findings
== END 2018-01-27 01:38 | disposition home or self-care (01) ==
LOC: ED 22:24
DX: M79.671 Pain in right foot (principal)

== ENCOUNTER 2018-10-15 06:37 | Emergency (ER) | payer SELFPAY ==
[2018-10-15 06:48] VITALS: BMI 35.6
[2018-10-15 06:49] VITALS: RESP 18
--- NOTE | 2018-10-15 07:29 | ED PDOC ---
Arrival/HPI - General Chief Complaint: Chest Pain Time Seen by Provider: 10/15/18 07:19 Historian: Patient - History of Present Illness Narrative History of Present Illness (Text): 10/15/18 07:26 33 f with hx asthma and acute kidney injury from ibuprofen use presents to the ED with chief complaint of sore throat and cough. Patient states that her symptoms began with a cough, the next morning developed a fever, went to local ED and had a cxr which she reports as being negative, was given tylenol for fever and was discharged home. Patient reports in the interim she had diarrhea, body aches. Patient presents to the ED today because of the severe cough and sore throat. Patient denies headache, no sinus pressure, no vomiting today, no bloody stools. PMD: Dr. Julius Colunga Past Medical History - Provider Review Nursing Documentation Reviewed: Yes - Infectious Disease Hx of Infectious Diseases: None - Tetanus Immunization Tetanus Immunization: Up to Date - Reproductive Currently : Unknown - Cardiac Hx Cardiac Disorders: No - Pulmonary Hx Respiratory Disorders: Yes Hx Asthma: Yes - Neurological Hx Neurological Disorder: No - HEENT Hx HEENT Disorder: No - Renal Hx Renal Failure: Yes (from motrin) - Endocrine/Metabolic Hx Endocrine Disorders: No - Hematological/Oncological Hx Blood Disorders: No - Integumentary Hx Dermatological Disorder: No - Musculoskeletal/Rheumatological Hx Musculoskeletal Disorders: No - Gastrointestinal Hx Gastrointestinal Disorders: No - Genitourinary/Gynecological Hx Genitourinary Disorders: No - Psychiatric Hx Psychophysiologic Disorder: No Hx Substance Use: No (denies) - Surgical History Other/Comment: kidney biopsy - Anesthesia Hx Anesthesia: No Family/Social History - Physician Review Nursing Documentation Reviewed: Yes Family/Social History: No Known Family HX Smoking Status: Light Smoker < 10 Cigarettes Daily Hx Alcohol Use: No (denies) Hx Substance Use: No (denies) Substance used: marijuana Allergies/Home Meds Allergies/Adverse Reactions: Allergies ibuprofen Allergy (Verified 01/26/18 22:59) ANAPHYLAXIS Caused kidney to fail Home Medications: Home Meds Medication Instructions Recorded Confirmed Albuterol HFA [Ventolin HFA 90 1 puff IH DAILY PRN 07/01/17 09/19/17 mcg/actuation (8 g)] Review of Systems - Physician Review All systems were reviewed & negative as marked: Yes - Review of Systems Constitutional: Fevers ENT: Sore Throat. absent: Other (no sinus pressure) Respiratory: Cough Gastrointestinal: Diarrhea. absent: Stool Changes (no bloody stools), Vomiting Musculoskeletal: Myalgias Neurological: absent: Headache Physical Exam - Physical Exam Narrative Physical Exam (Text): Gen: VS reviewed, alert, well developed, well nourished, nontoxic, mild distress. ENT: normal pharynx. scant white exudate on uvula, no swollen/red tonsils. Eye: EOMI, PERRL. Neck: no JVD, supple, no adenopathy. CV: regular rate, regular rhythm, no rubs, no murmur, no gallops, S1, S2, pulses equal and strong. Pulm: no distress, clear to auscultation, no wheeze, no rhonchi, breath sounds equal, no rales. Abd: soft, nontender, no guarding, no rebound, no rigidity, normal bowel sounds. Ext: no edema. Skin: good color, no rash, no cyanosis. Psych: responds appropriately to questions, normal affect. Neuro: oriented x 3, CN2-12 intact grossly, motor intact, sensation intact. Vital Signs Temp Pulse Pulse Resp BP Pulse Ox 10/15/18 07:24 91 H 18 128/68 98 10/15/18 06:59 75 10/15/18 06:43 98.7 F 94 H 18 133/105 H 100 Medical Decision Making ED Course and Treatment: 10/15/18 07:29 patient seen for generalized symptoms consistent with viral illness/flu-like illness. Will check strep as there is an exudative pharyngitis. Will check flu. Will defer cxr being lung exam is normal.will give IVF and neb for symptoms relief. 10/15/18 08:25 positive flu, labs ok, will tx with tammiflu as the pt fits target pop for tx, lidocaine vicous gargle for sore throat, trial tessalon for cough Disposition/Present on Arrival - Present on Arrival Any Indicators Present on Arrival: No History of DVT/PE: No History of Uncontrolled Diabetes: No Urinary Catheter: No History of Decub. Ulcer: No History Surgical Site Infection Following: None - Disposition Have Diagnosis and Disposition been Completed?: Yes Diagnosis: Influenza A Disposition: HOME/ ROUTINE Disposition Time: 08:21 Patient Plan: Discharge Patient Problems: Current Active Problems Problem Status Onset Influenza A Acute Condition: STABLE Discharge Instructions (ExitCare): Flu, Adult (DC) Additional Instructions: drink plenty of water. get plenty of rest (but do not stay bedridden). Prescriptions: Benzonatate [Tessalon Perles] 100 mg PO TID PRN #15 sgl PRN Reason: Cough Lidocaine 2% Viscous 15 ml MM Q3H #1 bottle Oseltamivir Phosphate [Tamiflu] 75 mg PO BID 5 Days #9 capsule Referrals: Julius Colunga MD [Primary Care Provider] - Follow up with primary Forms: [facility] ([place]), WORK NOTE
[2018-10-15] MEDS ORDERED: Lidocaine 1% Inj (20ml) IJ STA (07:35)
[2018-10-15] MEDS ORDERED: Sodium Chloride 0.9% 1,000 ML IV STA (07:35)
[2018-10-15 08:08] LABS: BASO # 0.01 K/mm3 (0.0-2.0); BASO % 0.3 % (0.0-3.0); EOS % 0.3 % (1.5-5.0); HEMOGLOBIN 15.4 g/dL (12.0-16.0); LYMPH # 1.2 (1.2-3.4); LYMPH % 29.8 % (22.0-35.0); MEAN CELL VOLUME 92.9 fl (80.0-105.0); MEAN CORPUSCULAR HEMOGLOBIN 32.1 pg (25.0-35.0); MEAN CORPUSCULAR HGB CONC 34.5 g/dl (31.0-37.0); MEAN PLATELET VOLUME 11.6 fl (7.0-11.0); MONO # 0.7 (0.1-0.6); MONO % 16.3 % (1.0-6.0); RBC 4.8 10^6/uL (3.5-6.1); RED CELL DISTRIBUTION WIDTH 13.2 % (11.5-14.5)
[2018-10-15 08:14] LABS: INFLUENZA A B POS FOR INFLUENZA A (NEGATIVE)
[2018-10-15 08:17] LABS: ALB/GLOB RATIO 1.2 (1.1-1.8); ALBUMIN 4.5 g/dL (3.0-4.8); ALT/SGPT 25 U/L (7-56); AST/SGOT 42 U/L (14-36); BLOOD UREA NITROGEN 11 mg/dL (7-21); CALCIUM 9.2 mg/dL (8.4-10.5); GFR NON-AFRICAN AMERICAN > 60
[2018-10-15 08:37] VITALS: BP 126/78; PULSE 78; TEMP 9.6; O2SAT 99
--- NOTE | 2018-10-15 11:12 | CARD ---
APPROVED REPORT Date of service: 10/15/2018 EKG Measurement Heart [id number] <Conclusion> Normal sinus rhythm with sinus arrhythmia Normal ECG
== END 2018-10-15 08:36 | disposition home or self-care (01) ==
LOC: ED 06:37
DX: J10.1 Influenza due to other identified influenza virus with other respiratory manifestations (principal); F17.210 Nicotine dependence, cigarettes, uncomplicated
CPT/HCPCS: 80053; 81025; 83735; 85025; 87070; 87430; 87804; 93005; 96360; 99284; J7030